=== PATIENT | female | born 1945 | race African-American/Black ===

== ENCOUNTER 2017-01-28 16:57 | Emergency (ER) | payer OTHER ==
[~2017-01-28] VITALS: Ht 157.5 cm; Wt 64.0 kg
[2017-01-28 17:08] VITALS: BP 175/55
[2017-01-28 18:11] LABS: Basophils # (auto) 0 uL; Basophils % (auto) 0.3 % (0.0-2.0); CONDITION Y; Eosinophils # (auto) 0.1 uL; Eosinophils % (auto) 1.1 % (0.0-7.0); Hematocrit 29.2 % (36.0-46.0); Hemoglobin 9.5 g/dL (12.2-16.2); Lymphocytes # (auto) 1.6 uL; Lymphocytes % (auto) 31.1 % (10.0-50.0); Mean Corpuscular Hemoglobin 30.3 pg (28.0-32.0); Mean Corpuscular Hgb Conc. 32.4 g/dL (32.0-36.0); Mean Corpuscular Volume 93.4 fL (80.0-100.0); Mean Platelet Volume 7.6 fL (7.4-10.4); Monocytes # (auto) 0.5 uL; Monocytes % (auto) 9.8 % (0.0-12.0); Neutrophils % (auto) 57.7 % (37.0-80.0); Platelet Count (auto) 371 10^3/uL (140-450); Red Cell Distribution Width 14.2 % (11.6-16.0); White Blood Cell 5.2 10^3/uL (4.4-10.8)
[2017-01-28 18:14] LABS: BUN/Creatinine Ratio 14.2; Bilirubin, Total 0.3 mg/dL (0.2-1.0); Calcium 8.9 mg/dL (8.5-10.1); Potassium 5.1 mmol/L (3.5-5.1); Total Protein 8.1 g/dL (6.4-8.2)
[2017-01-28 18:22] LABS: Urine Bilirubin Negative (Negative); Urine Blood Negative /uL (Negative); Urine Color Yellow (Yellow); Urine Glucose Normal (Normal); Urine Ketone Negative (Negative); Urine Nitrite Negative (Negative); Urine RBC 1 /hpf (0 - 4); Urine Squamous Epithelial Cell FEW /hpf (<5); Urine Urobilinogen Normal (Negative); Urine pH 5.5 (5.0-8.0)
== END 2017-01-28 18:40 | disposition home or self-care (01) ==
LOC: ER 17:08
DX: E87.8 Other disorders of electrolyte and fluid balance, not elsewhere classified (principal); R51 Headache; E11.22 Type 2 diabetes mellitus with diabetic chronic kidney disease; I12.9 Hypertensive chronic kidney disease with stage 1 through stage 4 chronic kidney disease, or unspecified chronic kidney disease; N18.9 Chronic kidney disease, unspecified; E78.5 Hyperlipidemia, unspecified; Z90.49 Acquired absence of other specified parts of digestive tract; Z90.710 Acquired absence of both cervix and uterus
CPT/HCPCS: 36415; 80053; 81001; 85025; 93005

== ENCOUNTER 2022-05-21 22:20 | Emergency (ER) | payer MEDICARE, MEDICAID ==
[~2022-05-21] VITALS: Ht 157.5 cm; Wt 62.0 kg
[2022-05-22 07:59] LABS: Basophils # (auto) 0 10 ^3/uL (0-0.2); Eosinophils # (auto) 0 10 ^3/uL (0-0.8); Lymphocytes # (auto) 1.6 10 ^3/uL (0.4-5.4); Monocytes # (auto) 0.6 10 ^3/uL (0-1.3)
[2022-05-22 08:01] LABS: Basophils % (auto) 0.3 % (0.0-2.0); Eosinophils % (auto) 0.8 % (0.0-7.0); Hematocrit 35.5 % (36.0-46.0); Mean Corpuscular Hemoglobin 25.9 pg (28.0-32.0); Mean Corpuscular Hgb Conc. 30.8 g/dL (32.0-36.0); Mean Corpuscular Volume 83.9 fL (80.0-100.0); Neutrophils # (auto) 2.5 10 ^3/uL (1.6-8.6); Neutrophils % (auto) 52.9 % (37.0-80.0); Nucleated Red Blood Cells % 0.1 %; Red Blood Cells 4.23 10^6/uL (4.0-5.20); Red Cell Distribution Width 16.8 % (11.8-14.3); White Blood Cell 4.8 10^3/uL (4.4-10.8)
[2022-05-22 08:13] LABS: Urine Bacteria FEW /hpf (None Seen); Urine Blood Negative /uL (Negative); Urine Budding Yeast OCCASIONAL /hpf (None Seen); Urine Hyaline Cast FEW /lpf (0 - 2); Urine Specific Gravity 1.012 (1.001-1.035); Urine WBC 1 /hpf (0 - 5)
[2022-05-22 08:24] LABS: Albumin 3.7 g/dL (3.4-5.0); BUN/Creatinine Ratio 11.9; Bilirubin, Total 0.2 mg/dL (0.2-1.0); Calcium 9.2 mg/dL (8.5-10.1); Potassium 4.4 mmol/L (3.5-5.1); Total Protein 7.5 g/dL (6.4-8.2)
[2022-05-22 08:50] VITALS: BP 174/65
== END 2022-05-22 09:07 | disposition home or self-care (01) ==
LOC: ER 22:22
DX: R10.32 Left lower quadrant pain (principal); E11.22 Type 2 diabetes mellitus with diabetic chronic kidney disease; I13.0 Hypertensive heart and chronic kidney disease with heart failure and stage 1 through stage 4 chronic kidney disease, or unspecified chronic kidney disease; N18.9 Chronic kidney disease, unspecified; E78.5 Hyperlipidemia, unspecified; Z90.49 Acquired absence of other specified parts of digestive tract; Z88.6 Allergy status to analgesic agent
CPT/HCPCS: 36415; 74018; 80053; 81001; 84484; 85025

== ENCOUNTER 2022-12-13 18:46 | Inpatient (IN) | payer MEDICARE, MEDICAID ==
[~2022-12-13] VITALS: Ht 157.5 cm; Wt 63.2 kg
[2022-12-13 21:04] LABS: Albumin 3.5 g/dL (3.4-5.0); Potassium 4.9 mmol/L (3.5-5.1)
[2022-12-13 21:07] LABS: BUN/Creatinine Ratio 11.9 (10.0-20.0); Bilirubin, Total 0.2 mg/dL (0.2-1.0); Total Protein 7.9 g/dL (6.4-8.2)
[2022-12-13 21:27] LABS: Urine Bacteria NONE SEEN /hpf (None Seen); Urine Blood Negative /uL (Negative); Urine Mucus FEW (None Seen); Urine Specific Gravity 1.021 (1.001-1.035); Urine WBC <1 /hpf (0 - 5)
[2022-12-13 21:28] LABS: Basophils # (auto) 0 10 ^3/uL (0-0.2); Basophils % (auto) 0.2 % (0.0-2.0); Eosinophils # (auto) 0 10 ^3/uL (0-0.8); Hematocrit 38.3 % (36.0-46.0); Hemoglobin 12.3 g/dL (12.2-16.2); Lymphocytes # (auto) 1.3 10 ^3/uL (0.4-5.4); Lymphocytes % (auto) 16.6 % (10.0-50.0); Mean Corpuscular Hemoglobin 28.4 pg (28.0-32.0); Mean Corpuscular Hgb Conc. 32.2 g/dL (32.0-36.0); Mean Corpuscular Volume 88.4 fL (80.0-100.0); Monocytes # (auto) 0.5 10 ^3/uL (0-1.3); Monocytes % (auto) 6.7 % (0.0-12.0); Neutrophils # (auto) 5.8 10 ^3/uL (1.6-8.6); Neutrophils % (auto) 76.5 % (37.0-80.0); Nucleated Red Blood Cells % 0.1 %; Red Blood Cells 4.34 10^6/uL (4.0-5.20); Red Cell Distribution Width 15.4 % (11.8-14.3); White Blood Cell 7.6 10^3/uL (4.4-10.8)
[2022-12-14] MEDS ORDERED: DEXTROSE (50%) 50ML SYRG IV PRN (01:15)
[2022-12-14] MEDS ORDERED: DOCUSATE SOD 100 MG CAP PO PRN (01:15)
[2022-12-14] MEDS ORDERED: IOHEXOL 350 MG/ML 100ML IJ ONE (03:35)
[2022-12-14] MEDS ORDERED: MORPHINE SULFATE INJ 2 MG/ml SYRG IV PRN ×2 (06:00→07:15)
[2022-12-14] MEDS ORDERED: NITROGLYCERIN 0.4 MG SL TAB SL PRN (06:00)
[2022-12-14 06:45] LABS: Basophils # (auto) 0.1 10 ^3/uL (0-0.2); Basophils % (auto) 0.8 % (0.0-2.0); Eosinophils # (auto) 0 10 ^3/uL (0-0.8); Eosinophils % (auto) 0.2 % (0.0-7.0); Hemoglobin 12.4 g/dL (12.2-16.2); Lymphocytes # (auto) 1.3 10 ^3/uL (0.4-5.4); Mean Corpuscular Hemoglobin 27.9 pg (28.0-32.0); Mean Corpuscular Hgb Conc. 31.9 g/dL (32.0-36.0); Mean Corpuscular Volume 87.6 fL (80.0-100.0); Monocytes # (auto) 0.8 10 ^3/uL (0-1.3); Monocytes % (auto) 9.8 % (0.0-12.0); Neutrophils # (auto) 5.7 10 ^3/uL (1.6-8.6); Neutrophils % (auto) 72.2 % (37.0-80.0); Nucleated Red Blood Cells % 0.2 %; Red Blood Cells 4.46 10^6/uL (4.0-5.20); Red Cell Distribution Width 15.7 % (11.8-14.3); White Blood Cell 7.9 10^3/uL (4.4-10.8)
[2022-12-14 07:07] LABS: Albumin 3.5 g/dL (3.4-5.0); Potassium 4.6 mmol/L (3.5-5.1)
[2022-12-14 07:10] LABS: BUN/Creatinine Ratio 13.1 (10.0-20.0); Bilirubin, Total 0.2 mg/dL (0.2-1.0); Total Protein 7.7 g/dL (6.4-8.2)
[2022-12-14] MEDS ORDERED: hydrALAZINE HCL 20 MG/ML VL IV PRN (07:15)
[2022-12-14] MEDS: ACCU-CHEK COMFORT CURVE STRIP VI SCH ×4 (07:19→22:00)
[2022-12-14] MEDS: InsuLIN REG 1unit/0.01ml Soln (100units/ml) SC SCH ×3 (07:26→17:50)
[2022-12-14] MEDS ORDERED: amLODIPine BESYLATE 5 MG TAB PO SCH (10:00)
[2022-12-14] MEDS: TACROLIMUS 1 MG CAP PO SCH ×2 (10:00→22:00)
[2022-12-14] MEDS: SODIUM CHLORIDE 0.9% 1,000 ML IV SCH ×2 (10:11→17:55)
[2022-12-14] MEDS: FAMOTIDINE (10MG/ML) 2ML VL IV SCH ×2 (11:00→23:53)
[2022-12-14] MEDS: ACETAMINOPHEN 325 MG TAB PO PRN (12:13)
[2022-12-14] MEDS ORDERED: metroNIDAZOLE 500MG/100ML 100 ML IV SCH (14:00)
[2022-12-14 22:00] VITALS: BP_SYST 153; BP_SYST 171; BP_DIAS 54; BP_DIAS 62
[2022-12-14] MEDS ORDERED: hydrALAZINE HCL 20 MG/ML VL IV ONE (22:45)
[2022-12-15] VITALS (9 sets, daily range): BP systolic 98–168; BP diastolic 54–71
[2022-12-15] MEDS: InsuLIN REG 1unit/0.01ml Soln (100units/ml) SC SCH ×5 (00:01→21:29)
[2022-12-15] MEDS: ONDANSETRON HCL 4 MG/2 ML VIAL IV PRN ×2 (00:39→17:39)
[2022-12-15] MEDS ORDERED: PANT40TA2 PO (02:18)
[2022-12-15] MEDS ORDERED: MYCO180T PO (02:18)
[2022-12-15] MEDS ORDERED: METO-158 PO (02:18)
[2022-12-15] MEDS ORDERED: ACYC200C22 PO (02:18)
[2022-12-15] MEDS ORDERED: TACR1CAP4 PO (02:18)
[2022-12-15] MEDS ORDERED: NIFE1TAB30 PO (02:18)
[2022-12-15] MEDS ORDERED: PRED1PAK7 PO (02:18)
[2022-12-15] MEDS ORDERED: DOCU-94 PO (02:26)
[2022-12-15] MEDS ORDERED: LORA10CA12 PO (02:26)
[2022-12-15] MEDS: metroNIDAZOLE 500MG/100ML 100 ML IV SCH ×3 (02:44→17:41)
[2022-12-15] MEDS: ACETAMINOPHEN 325 MG TAB PO PRN ×2 (04:14→22:55)
[2022-12-15] MEDS: ACCU-CHEK COMFORT CURVE STRIP VI SCH ×4 (05:50→21:27)
[2022-12-15 06:33] LABS: Basophils # (auto) 0 10 ^3/uL (0-0.2); Basophils % (auto) 0.4 % (0.0-2.0); Eosinophils # (auto) 0 10 ^3/uL (0-0.8); Eosinophils % (auto) 0.1 % (0.0-7.0); Hematocrit 34.3 % (36.0-46.0); Lymphocytes # (auto) 0.9 10 ^3/uL (0.4-5.4); Lymphocytes % (auto) 10.3 % (10.0-50.0); Mean Corpuscular Hemoglobin 27.7 pg (28.0-32.0); Mean Corpuscular Volume 86.7 fL (80.0-100.0); Monocytes # (auto) 0.7 10 ^3/uL (0-1.3); Monocytes % (auto) 8.7 % (0.0-12.0); Neutrophils # (auto) 6.6 10 ^3/uL (1.6-8.6); Neutrophils % (auto) 80.5 % (37.0-80.0); Red Blood Cells 3.96 10^6/uL (4.0-5.20); Red Cell Distribution Width 15.7 % (11.8-14.3); White Blood Cell 8.3 10^3/uL (4.4-10.8)
[2022-12-15 06:45] LABS: Albumin 2.9 g/dL (3.4-5.0); Calcium 8.4 mg/dL (8.5-10.1); Potassium 4.6 mmol/L (3.5-5.1)
[2022-12-15 06:51] LABS: Bilirubin, Total 0.4 mg/dL (0.2-1.0); Total Protein 6.2 g/dL (6.4-8.2)
[2022-12-15] MEDS: METOPROLOL TARTRATE 50 MG TAB PO SCH ×2 (09:53→21:22)
[2022-12-15] MEDS: NIFEdipine ER 30 MG TAB PO SCH ×2 (09:53→21:21)
[2022-12-15] MEDS: HYDROcodone-ACET 5/325MG TAB PO PRN ×2 (09:54→17:40)
[2022-12-15] MEDS: FAMOTIDINE (10MG/ML) 2ML VL IV SCH ×2 (09:54→21:22)
[2022-12-15] MEDS: SODIUM CHLORIDE 0.9% 1,000 ML IV SCH (09:57)
[2022-12-15] MEDS: predniSONE 5 MG TAB PO SCH (10:00)
[2022-12-15] MEDS: TACROLIMUS 1 MG CAP PO SCH (10:15)
[2022-12-15] MEDS: MYCOPHENOLATE 250 MG CAP PO SCH (22:00)
[2022-12-16] MEDS: metroNIDAZOLE 500MG/100ML 100 ML IV SCH ×3 (03:13→18:47)
[2022-12-16 05:00] VITALS: BP 119/71
[2022-12-16] MEDS: ACCU-CHEK COMFORT CURVE STRIP VI SCH ×4 (06:41→21:09)
[2022-12-16] MEDS: InsuLIN REG 1unit/0.01ml Soln (100units/ml) SC SCH ×5 (06:49→21:15)
[2022-12-16 08:00] VITALS: BP 148/68
[2022-12-16 08:00] LABS: Calcium 8.8 mg/dL (8.5-10.1); Potassium 4.3 mmol/L (3.5-5.1)
[2022-12-16 08:04] LABS: Basophils # (auto) 0 10 ^3/uL (0-0.2); Basophils % (auto) 0.2 % (0.0-2.0); Eosinophils # (auto) 0 10 ^3/uL (0-0.8); Eosinophils % (auto) 0.4 % (0.0-7.0); Hemoglobin 11.1 g/dL (12.2-16.2); Lymphocytes # (auto) 0.7 10 ^3/uL (0.4-5.4); Lymphocytes % (auto) 13.7 % (10.0-50.0); Mean Corpuscular Hemoglobin 28.1 pg (28.0-32.0); Mean Corpuscular Hgb Conc. 31.8 g/dL (32.0-36.0); Mean Corpuscular Volume 88.2 fL (80.0-100.0); Monocytes # (auto) 0.6 10 ^3/uL (0-1.3); Monocytes % (auto) 11.5 % (0.0-12.0); Neutrophils # (auto) 4.1 10 ^3/uL (1.6-8.6); Neutrophils % (auto) 74.2 % (37.0-80.0); Nucleated Red Blood Cells % 0.2 %; Red Blood Cells 3.97 10^6/uL (4.0-5.20); Red Cell Distribution Width 15.9 % (11.8-14.3); White Blood Cell 5.5 10^3/uL (4.4-10.8)
[2022-12-16 08:08] LABS: BUN/Creatinine Ratio 9.5 (10.0-20.0); Bilirubin, Total 0.4 mg/dL (0.2-1.0); Total Protein 6.5 g/dL (6.4-8.2)
[2022-12-16 09:00] VITALS: BP 152/53
[2022-12-16] MEDS ORDERED: APIX2.5T PO (09:29)
[2022-12-16] MEDS ORDERED: APIXABAN 2.5 MG TAB PO SCH (10:00)
[2022-12-16] MEDS: MYCOPHENOLATE 250 MG CAP PO SCH (10:00)
[2022-12-16] MEDS: NIFEdipine ER 30 MG TAB PO SCH ×2 (10:28→21:08)
[2022-12-16] MEDS: predniSONE 5 MG TAB PO SCH (10:28)
[2022-12-16] MEDS: METOPROLOL TARTRATE 50 MG TAB PO SCH ×2 (10:29→21:08)
[2022-12-16] MEDS: APIXABAN 2.5 MG TAB PO SCH ×2 (10:29→21:09)
[2022-12-16] MEDS: TACROLIMUS 1 MG CAP PO SCH (10:29)
[2022-12-16] MEDS: FAMOTIDINE (10MG/ML) 2ML VL IV SCH ×2 (11:55→21:09)
[2022-12-16 12:26] VITALS: BP 137/76
[2022-12-16] MEDS: HYDROcodone-ACET 5/325MG TAB PO PRN (13:51)
[2022-12-16] MEDS ORDERED: ALBUTEROL SULF 2.5 MG/0.5ML(0.5%) NEB SOLN NEB ONE (16:15)
[2022-12-16] MEDS ORDERED: ALBUTEROL SULF 2.5 MG/0.5ML(0.5%) NEB SOLN NEB PRN (16:30)
[2022-12-16 17:18] VITALS: BP 146/56
[2022-12-16 22:00] VITALS: BP 160/68
[2022-12-17] MEDS: metroNIDAZOLE 500MG/100ML 100 ML IV SCH ×3 (02:05→19:00)
[2022-12-17 02:44] VITALS: BP 160/68
[2022-12-17 05:00] VITALS: BP_SYST 103; BP_SYST 137; BP_DIAS 43; BP_DIAS 60
[2022-12-17] MEDS: ACCU-CHEK COMFORT CURVE STRIP VI SCH ×4 (06:06→21:36)
[2022-12-17] MEDS: InsuLIN REG 1unit/0.01ml Soln (100units/ml) SC SCH ×4 (06:06→21:36)
[2022-12-17 06:13] LABS: Basophils # (auto) 0 10 ^3/uL (0-0.2); Basophils % (auto) 0.1 % (0.0-2.0); Eosinophils # (auto) 0 10 ^3/uL (0-0.8); Eosinophils % (auto) 0.8 % (0.0-7.0); Hematocrit 34.5 % (36.0-46.0); Hemoglobin 10.9 g/dL (12.2-16.2); Lymphocytes # (auto) 0.9 10 ^3/uL (0.4-5.4); Lymphocytes % (auto) 18.5 % (10.0-50.0); Mean Corpuscular Hemoglobin 27.8 pg (28.0-32.0); Mean Corpuscular Hgb Conc. 31.7 g/dL (32.0-36.0); Mean Corpuscular Volume 87.6 fL (80.0-100.0); Monocytes # (auto) 0.6 10 ^3/uL (0-1.3); Monocytes % (auto) 12.6 % (0.0-12.0); Neutrophils # (auto) 3.4 10 ^3/uL (1.6-8.6); Nucleated Red Blood Cells % 0.2 %; Red Blood Cells 3.94 10^6/uL (4.0-5.20); Red Cell Distribution Width 15.5 % (11.8-14.3)
[2022-12-17 06:24] LABS: Potassium 4.5 mmol/L (3.5-5.1)
[2022-12-17 06:30] LABS: Albumin 3.1 g/dL (3.4-5.0); BUN/Creatinine Ratio 8.5 (10.0-20.0); Bilirubin, Total 0.3 mg/dL (0.2-1.0); Calcium 8.8 mg/dL (8.5-10.1); Total Protein 6.5 g/dL (6.4-8.2)
[2022-12-17 08:00] VITALS: BP 151/60
[2022-12-17] MEDS: APIXABAN 2.5 MG TAB PO SCH ×2 (08:27→21:36)
[2022-12-17] MEDS: FAMOTIDINE (10MG/ML) 2ML VL IV SCH (08:27)
[2022-12-17] MEDS: METOPROLOL TARTRATE 50 MG TAB PO SCH ×2 (08:28→21:36)
[2022-12-17] MEDS: predniSONE 5 MG TAB PO SCH (08:28)
[2022-12-17] MEDS: TACROLIMUS 1 MG CAP PO SCH (08:28)
[2022-12-17] MEDS: NIFEdipine ER 30 MG TAB PO SCH ×2 (08:28→21:35)
[2022-12-17] MEDS ORDERED: DEXTROSE (50%) 50ML SYRG IV PRN (11:30)
[2022-12-17 12:00] VITALS: BP 111/63
[2022-12-17 16:00] VITALS: BP 139/65
[2022-12-17] MEDS ORDERED: cefTRIAXone 1GM/50ML D5W 50 ML IV ONE (20:00)
[2022-12-17] MEDS: HYDROcodone-ACET 5/325MG TAB PO PRN (20:23)
[2022-12-17] MEDS ORDERED: diphenhdrAMINE HCL 25 MG CAP PO ONE (21:00)
[2022-12-17 22:00] VITALS: BP 152/74
[2022-12-18] MEDS: metroNIDAZOLE 500MG/100ML 100 ML IV SCH (03:54)
[2022-12-18 05:00] VITALS: BP 155/55
[2022-12-18] MEDS: InsuLIN REG 1unit/0.01ml Soln (100units/ml) SC SCH ×4 (06:22→22:29)
[2022-12-18] MEDS: ACCU-CHEK COMFORT CURVE STRIP VI SCH ×4 (06:22→22:28)
[2022-12-18 08:00] VITALS: BP 142/82
[2022-12-18] MEDS: predniSONE 5 MG TAB PO SCH (10:15)
[2022-12-18] MEDS: APIXABAN 2.5 MG TAB PO SCH ×2 (10:15→22:27)
[2022-12-18] MEDS: NIFEdipine ER 30 MG TAB PO SCH ×2 (10:15→22:27)
[2022-12-18] MEDS: TACROLIMUS 1 MG CAP PO SCH (10:16)
[2022-12-18] MEDS: METOPROLOL TARTRATE 50 MG TAB PO SCH ×2 (10:16→22:27)
[2022-12-18] MEDS: cefTRIAXone 1GM/50ML D5W 50 ML IV SCH (11:28)
[2022-12-18 12:00] VITALS: BP 144/65
[2022-12-18] MEDS: metroNIDAZOLE 500 MG TAB PO SCH ×2 (14:13→22:28)
[2022-12-18 16:00] VITALS: BP 144/70
[2022-12-18 22:00] VITALS: BP 138/67
[2022-12-18] MEDS ORDERED: INSULIN LANTUS (GLARGINE) 1 /0.01ml (100units/ml) SC SCH (22:00)
[2022-12-19 05:00] VITALS: BP 142/69
[2022-12-19] MEDS: metroNIDAZOLE 500 MG TAB PO SCH ×2 (06:05→14:23)
[2022-12-19] MEDS: InsuLIN REG 1unit/0.01ml Soln (100units/ml) SC SCH ×2 (06:07→12:00)
[2022-12-19] MEDS: ACCU-CHEK COMFORT CURVE STRIP VI SCH ×2 (06:07→11:59)
[2022-12-19 07:16] LABS: Basophils # (auto) 0 10 ^3/uL (0-0.2); Basophils % (auto) 0.5 % (0.0-2.0); Eosinophils # (auto) 0 10 ^3/uL (0-0.8); Eosinophils % (auto) 1.1 % (0.0-7.0); Lymphocytes % (auto) 23.3 % (10.0-50.0); Mean Corpuscular Hemoglobin 28.1 pg (28.0-32.0); Mean Corpuscular Hgb Conc. 32.4 g/dL (32.0-36.0); Mean Corpuscular Volume 86.7 fL (80.0-100.0); Monocytes # (auto) 0.7 10 ^3/uL (0-1.3); Monocytes % (auto) 14.9 % (0.0-12.0); Neutrophils # (auto) 2.7 10 ^3/uL (1.6-8.6); Neutrophils % (auto) 60.2 % (37.0-80.0); Red Blood Cells 3.93 10^6/uL (4.0-5.20); Red Cell Distribution Width 15.7 % (11.8-14.3); White Blood Cell 4.4 10^3/uL (4.4-10.8)
[2022-12-19 07:22] LABS: BUN/Creatinine Ratio 10.9 (10.0-20.0); Calcium 8.7 mg/dL (8.5-10.1)
[2022-12-19 07:55] VITALS: BP 131/64
[2022-12-19] MEDS: cefTRIAXone 1GM/50ML D5W 50 ML IV SCH (09:16)
[2022-12-19 09:23] VITALS: BP 131/64
[2022-12-19] MEDS: NIFEdipine ER 30 MG TAB PO SCH (09:50)
[2022-12-19] MEDS: METOPROLOL TARTRATE 50 MG TAB PO SCH (09:51)
[2022-12-19] MEDS: APIXABAN 2.5 MG TAB PO SCH (09:51)
[2022-12-19] MEDS: predniSONE 5 MG TAB PO SCH (09:51)
[2022-12-19] MEDS: TACROLIMUS 1 MG CAP PO SCH (09:52)
[2022-12-19] MEDS ORDERED: METR375C PO (09:53)
[2022-12-19] MEDS ORDERED: CIP500T PO (09:53)
[2022-12-19 12:59] VITALS: BP 159/65
[2022-12-19 13:12] VITALS: BP 159/65
== END 2022-12-19 14:23 | disposition home or self-care (01) | DRG 377 ==
LOC: ER 18:50 → OVERFLOW 12-14 05:51 → CENTRAL 12-14 21:18
PROVIDERS: ADMIT Nurse Practitioner Family; ATTEND Internal Medicine
DX: K57.33 Diverticulitis of large intestine without perforation or abscess with bleeding (principal); N17.0 Acute kidney failure with tubular necrosis; I82.402 Acute embolism and thrombosis of unspecified deep veins of left lower extremity; E11.22 Type 2 diabetes mellitus with diabetic chronic kidney disease; K52.9 Noninfective gastroenteritis and colitis, unspecified; E78.5 Hyperlipidemia, unspecified; N18.31 Chronic kidney disease, stage 3a; I12.9 Hypertensive chronic kidney disease with stage 1 through stage 4 chronic kidney disease, or unspecified chronic kidney disease; I16.0 Hypertensive urgency; Z79.01 Long term (current) use of anticoagulants; Z88.6 Allergy status to analgesic agent; Z90.710 Acquired absence of both cervix and uterus; Z86.718 Personal history of other venous thrombosis and embolism
CPT/HCPCS: 36415; 71045; 74177; 80048; 80053; 80197; 81001; 82962; 83690; 85025; 93975; 94640; 96361; 96365; 96375; G0378; J0696; J1815; J2405; J3490; J7507; J7517

== ENCOUNTER 2023-01-30 14:22 | Emergency (ER) | payer MEDICARE, MEDICAID ==
[~2023-01-30] VITALS: Ht 157.5 cm; Wt 58.6 kg
[~2023-01-30 14:22] MED LIST: ACYC200C22 PO; APIX2.5T PO; CIP500T PO; DOCU-94 PO; LORA10CA12 PO; METO-158 PO; METR375C PO; MYCO180T PO; NIFE1TAB30 PO; PANT40TA2 PO; PRED1PAK7 PO; TACR1CAP4 PO
[2023-01-30 15:23] LABS: Urine Bacteria MOD /hpf (None Seen); Urine Blood Negative /uL (Negative); Urine Hyaline Cast FEW /lpf (0 - 2); Urine Mucus FEW (None Seen); Urine Specific Gravity 1.031 (1.001-1.035); Urine WBC 2 /hpf (0 - 5)
[2023-01-30 15:37] LABS: Basophils # (auto) 0 10 ^3/uL (0-0.2); Basophils % (auto) 0.3 % (0.0-2.0); Eosinophils # (auto) 0 10 ^3/uL (0-0.8); Eosinophils % (auto) 0.3 % (0.0-7.0); Hematocrit 39.1 % (36.0-46.0); Hemoglobin 12.3 g/dL (12.2-16.2); Lymphocytes # (auto) 1.1 10 ^3/uL (0.4-5.4); Lymphocytes % (auto) 21.6 % (10.0-50.0); Mean Corpuscular Hemoglobin 27.5 pg (28.0-32.0); Mean Corpuscular Hgb Conc. 31.5 g/dL (32.0-36.0); Mean Corpuscular Volume 87.1 fL (80.0-100.0); Monocytes # (auto) 0.4 10 ^3/uL (0-1.3); Monocytes % (auto) 6.9 % (0.0-12.0); Neutrophils # (auto) 3.8 10 ^3/uL (1.6-8.6); Neutrophils % (auto) 70.9 % (37.0-80.0); Nucleated Red Blood Cells % 0.1 %; Red Blood Cells 4.49 10^6/uL (4.0-5.20); Red Cell Distribution Width 17.1 % (11.8-14.3); White Blood Cell 5.3 10^3/uL (4.4-10.8)
[2023-01-30 15:58] LABS: Albumin 3.6 g/dL (3.4-5.0); Calcium 9.4 mg/dL (8.5-10.1); Potassium 4.6 mmol/L (3.5-5.1)
[2023-01-30 16:02] LABS: BUN/Creatinine Ratio 10.5 (10.0-20.0); Bilirubin, Total 0.4 mg/dL (0.2-1.0); Total Protein 7.6 g/dL (6.4-8.2)
[2023-01-30 19:20] VITALS: BP 128/59; PULSE 95; RESP 18; TEMP 98.1; O2SAT 95
== END 2023-01-30 19:56 | disposition home or self-care (01) ==
LOC: ER 14:22
DX: R13.10 Dysphagia, unspecified (principal); R53.1 Weakness; I12.9 Hypertensive chronic kidney disease with stage 1 through stage 4 chronic kidney disease, or unspecified chronic kidney disease; E11.22 Type 2 diabetes mellitus with diabetic chronic kidney disease; N18.9 Chronic kidney disease, unspecified; E78.5 Hyperlipidemia, unspecified; Z90.49 Acquired absence of other specified parts of digestive tract; Z90.710 Acquired absence of both cervix and uterus; Z98.890 Other specified postprocedural states
CPT/HCPCS: 36415; 70450; 70551; 80053; 81001; 85025

== ENCOUNTER 2023-05-29 19:31 | Emergency (ER) | payer MEDICARE, MEDICAID ==
[~2023-05-29] VITALS: Ht 157.5 cm; Wt 57.3 kg
[2023-05-29 21:09] LABS: Basophils # (auto) 0 10 ^3/uL (0-0.2); Basophils % (auto) 0.2 % (0.0-2.0); Eosinophils # (auto) 0 10 ^3/uL (0-0.8); Eosinophils % (auto) 0.2 % (0.0-7.0); Hematocrit 36.7 % (36.0-46.0); Hemoglobin 11.8 g/dL (12.2-16.2); Lymphocytes # (auto) 1.2 10 ^3/uL (0.4-5.4); Lymphocytes % (auto) 23.1 % (10.0-50.0); Mean Corpuscular Hemoglobin 28.9 pg (28.0-32.0); Mean Corpuscular Volume 90.2 fL (80.0-100.0); Monocytes # (auto) 0.5 10 ^3/uL (0-1.3); Monocytes % (auto) 9.8 % (0.0-12.0); Neutrophils # (auto) 3.4 10 ^3/uL (1.6-8.6); Neutrophils % (auto) 66.7 % (37.0-80.0); Nucleated Red Blood Cells % 0.1 %; Red Blood Cells 4.07 10^6/uL (4.0-5.20); Red Cell Distribution Width 15.7 % (11.8-14.3)
[2023-05-29 21:15] LABS: Urine Bacteria MANY /hpf (None Seen); Urine Blood Negative /uL (Negative); Urine Clarity HAZY (Clear); Urine Color Yellow (Yellow); Urine Hyaline Cast MOD /lpf (0 - 2); Urine Mucus FEW (None Seen); Urine Protein, UAD TRACE (Negative); Urine Specific Gravity 1.027 (1.001-1.035); Urine Urobilinogen Normal (Negative); Urine WBC 2 /hpf (0 - 5)
[2023-05-29 21:27] LABS: Albumin 4.7 g/dL (3.2-4.8); Alkaline Phosphatase 91 U/L (46-116); Anion Gap 6 (5-15); Aspartate Aminotransferase 14 U/L (13-40); BUN/Creatinine Ratio 12.8 (10.0-20.0); Blood Urea Nitrogen 24 mg/dL (9-23); Calcium 10.2 mg/dL (8.5-10.1); Carbon Dioxide 27 mmol/L (20-30); Chloride 102 mmol/L (98-107); Glucose 128 mg/dL (74-106); Potassium 5.4 mmol/L (3.5-5.1); Sodium 135 mmol/L (136-145)
[2023-05-29 21:28] LABS: Bilirubin, Total 0.4 mg/dL (0.2-1.0)
[2023-05-29 21:29] LABS: Total Protein 7.2 g/dL (5.7-8.2)
[2023-05-29 22:12] LABS: Alanine Aminotransferase < 9 U/L (7-40)
[2023-05-30] MEDS ORDERED: ALBUTEROL SULF 2.5 MG/0.5ML(0.5%) NEB SOLN NEB ONE (00:45)
[2023-05-30] MEDS ORDERED: cefTRIAXone SOD 1,000 MG VL IM ONE (00:45)
[2023-05-30 01:53] LABS: Alkaline Phosphatase 88 U/L (46-116); Anion Gap 7 (5-15); Aspartate Aminotransferase 14 U/L (13-40); BUN/Creatinine Ratio 8.7 (10.0-20.0); Blood Urea Nitrogen 17 mg/dL (9-23); Calcium 9.6 mg/dL (8.7-10.4); Carbon Dioxide 24 mmol/L (20-30); Chloride 102 mmol/L (98-107); Glucose 116 mg/dL (74-106); Potassium 5.1 mmol/L (3.5-5.1); Sodium 133 mmol/L (136-145)
[2023-05-30 01:54] LABS: Albumin 4.7 g/dL (3.2-4.8); Bilirubin, Total 0.4 mg/dL (0.2-1.0); Total Protein 7.5 g/dL (5.7-8.2)
[2023-05-30 02:15] LABS: Alanine Aminotransferase < 9 U/L (7-40)
[2023-05-30] MEDS ORDERED: NITR-87 PO (03:08)
[2023-05-30] MEDS ORDERED: SODIUM CHLORIDE 0.9% 500 ML IV ONE (03:15)
[2023-05-30 04:18] VITALS: BP 129/60; PULSE 106; RESP 20; TEMP 98.2; O2SAT 98
== END 2023-05-30 04:38 | disposition home or self-care (01) ==
LOC: ER 19:31
DX: E87.8 Other disorders of electrolyte and fluid balance, not elsewhere classified (principal); N17.9 Acute kidney failure, unspecified; N39.0 Urinary tract infection, site not specified; I12.9 Hypertensive chronic kidney disease with stage 1 through stage 4 chronic kidney disease, or unspecified chronic kidney disease; E11.22 Type 2 diabetes mellitus with diabetic chronic kidney disease; N18.9 Chronic kidney disease, unspecified; E78.5 Hyperlipidemia, unspecified; Z90.49 Acquired absence of other specified parts of digestive tract; Z90.710 Acquired absence of both cervix and uterus; Z79.2 Long term (current) use of antibiotics; Z79.899 Other long term (current) drug therapy; Z88.6 Allergy status to analgesic agent
CPT/HCPCS: 36415; 80053; 81001; 84484; 85025; 94640; 96372; 99283; J0696

== ENCOUNTER 2024-03-21 12:25 | Inpatient (IN) | payer MEDICARE, OTHER ==
[~2024-03-21] VITALS: Ht 157.5 cm; Wt 65.6 kg
[~2024-03-21 12:25] MED LIST changes: +NITR-87 PO
[2024-03-21 13:18] LABS: Basophils # (auto) 0 10 ^3/uL (0-0.2); Basophils % (auto) 0.2 % (0.0-2.0); Eosinophils # (auto) 0 10 ^3/uL (0-0.8); Eosinophils % (auto) 0.1 % (0.0-7.0); Hematocrit 26.4 % (36.0-46.0); Hemoglobin 7.7 g/dL (12.2-16.2); Lymphocytes # (auto) 1.4 10 ^3/uL (0.4-5.4); Mean Corpuscular Hemoglobin 23.5 pg (28.0-32.0); Mean Corpuscular Hgb Conc. 29.1 g/dL (32.0-36.0); Mean Corpuscular Volume 80.8 fL (80.0-100.0); Monocytes # (auto) 0.5 10 ^3/uL (0-1.3); Monocytes % (auto) 9.1 % (0.0-12.0); Neutrophils # (auto) 3.4 10 ^3/uL (1.6-8.6); Neutrophils % (auto) 64.6 % (37.0-80.0); Nucleated Red Blood Cells % 0.2 %; Platelet Count (auto) 328 10^3/uL (140-450); Red Blood Cells 3.27 10^6/uL (4.0-5.20); Red Cell Distribution Width 17.6 % (11.8-14.3); White Blood Cell 5.2 10^3/uL (4.4-10.8)
[2024-03-21 13:32] LABS: Albumin 4.1 g/dL (3.2-4.8); Alkaline Phosphatase 105 U/L (46-116); Anion Gap 7 (5-15); Aspartate Aminotransferase 17 U/L (13-40); BUN/Creatinine Ratio 10.9 (10.0-20.0); Blood Urea Nitrogen 25 mg/dL (9-23); Calcium 8.8 mg/dL (8.7-10.4); Carbon Dioxide 19 mmol/L (20-30); Chloride 106 mmol/L (98-107); Glucose 179 mg/dL (74-106); Lipase 48 U/L (12-53); Potassium 5.4 mmol/L (3.5-5.1); Sodium 132 mmol/L (136-145)
[2024-03-21 13:33] LABS: Bilirubin, Total 0.3 mg/dL (0.2-1.0); Total Protein 6.5 g/dL (5.7-8.2)
[2024-03-21 13:36] LABS: Alanine Aminotransferase < 9 U/L (7-40)
[2024-03-21] MEDS: SODIUM CHLORIDE 0.9% 1,000 ML IV ONE (13:38)
[2024-03-21] MEDS: ALBUTEROL SULF 2.5 MG/0.5ML(0.5%) NEB SOLN NEB ONE (14:13)
[2024-03-21] MEDS ORDERED: NITROGLYCERIN 0.4 MG SL TAB SL PRN (17:15)
[2024-03-21] MEDS ORDERED: DEXTROSE (50%) 50ML SYRG IV PRN (17:15)
[2024-03-21] MEDS ORDERED: DOCUSATE SOD 100 MG CAP PO PRN (17:15)
[2024-03-21 18:05] LABS: Magnesium 2.6 mg/dL (1.6-2.6)
[2024-03-21 18:35] LABS: Urine Bacteria FEW /hpf (None Seen); Urine Blood 2+ /uL (Negative); Urine Clarity Turbid (Clear); Urine Color Yellow (Yellow); Urine Hyaline Cast MOD /lpf (0 - 2); Urine Mucus FEW (None Seen); Urine Protein, UAD 1+ (Negative); Urine Specific Gravity 1.026 (1.001-1.035); Urine Urobilinogen Normal (Negative); Urine WBC <1 /hpf (0 - 5); Urine pH 5.5 (5.0-9.0)
[2024-03-21] MEDS: MORPHINE SULFATE INJ 2 MG/ml SYRG IV PRN (20:13)
[2024-03-21] MEDS: ONDANSETRON HCL 4 MG/2 ML VIAL IV PRN (20:13)
[2024-03-21] MEDS: PANTOPRAZOLE 40 MG/10 ML VIAL INJ IV ONE (22:34)
[2024-03-21] MEDS: PIPERACILLIN-TAZOB 3.375GM 100 ML IV ONE (22:37)
[2024-03-21] MEDS: PANTOPRAZOLE 40 MG/10 ML VIAL INJ IV SCH (22:56)
[2024-03-21] MEDS: CALCIUM GLUC 1,000mg/50ml-NS 50 ML IV ONE (22:59)
[2024-03-21] MEDS: FUROSEMIDE 20 MG/2 ML VIAL IV ONE (22:59)
[2024-03-21] MEDS: PIPERACILLIN-TAZOB 3.375GM 100 ML IV SCH (23:03)
[2024-03-21 23:10] VITALS: PULSE 96; RESP 28; O2SAT 96
[2024-03-21 23:27] LABS: Hematocrit 23.1 % (36.0-46.0)
[2024-03-21] MEDS: ACCU-CHEK COMFORT CURVE STRIP VI SCH (23:36)
[2024-03-21] MEDS: InsuLIN REG 1unit/0.01ml Soln (100units/ml) SC SCH (23:42)
[2024-03-21] MEDS: MYCOPHENOLATE SODIUM 180 MG PO SCH (23:43)
[2024-03-21] MEDS: NIFEdipine ER 30 MG TAB PO SCH (23:46)
[2024-03-21 23:48] VITALS: BP 144/61; PULSE 97; RESP 28; TEMP 98
[2024-03-22] VITALS (16 sets, daily range): BP systolic 109–134; BP diastolic 34–61; PULSE 66–96; RESP 18–29; TEMP 97.7–99; O2SAT 84–99
[2024-03-22] MEDS ORDERED: PANT40T PO (01:26)
[2024-03-22] MEDS ORDERED: APIX5TAB PO (01:26)
[2024-03-22] MEDS ORDERED: MAGN241.6 PO (01:26)
[2024-03-22] MEDS ORDERED: TELM1TAB35 PO (01:26)
[2024-03-22] MEDS ORDERED: METO-289 PO (01:26)
[2024-03-22] MEDS ORDERED: TACR1TAB2 PO (01:26)
[2024-03-22] MEDS ORDERED: TACR200T PO (01:26)
[2024-03-22] MEDS ORDERED: CLON0.1T PO (01:26)
[2024-03-22] MEDS ORDERED: DOCU-265 PO (01:26)
[2024-03-22] MEDS ORDERED: DULA4.5I SC (01:26)
[2024-03-22] MEDS ORDERED: ATOR10TA52 PO (01:26)
[2024-03-22] MEDS ORDERED: FER325T PO (01:26)
[2024-03-22] MEDS ORDERED: CLOT10TR PO (01:52)
[2024-03-22] MEDS ORDERED: FLUC100T34 PO (01:52)
[2024-03-22] MEDS: SODIUM CHLORIDE 0.9% 1,000 ML IV SCH (05:43)
[2024-03-22 05:59] LABS: Basophils # (auto) 0 10 ^3/uL (0-0.2); Eosinophils # (auto) 0 10 ^3/uL (0-0.8); Mean Corpuscular Hemoglobin 24.7 pg (28.0-32.0)
[2024-03-22 06:01] LABS: Basophils % (auto) 0.3 % (0.0-2.0); Hematocrit 29.3 % (36.0-46.0); Hemoglobin 9.1 g/dL (12.2-16.2); Lymphocytes % (auto) 15.7 % (10.0-50.0); Mean Corpuscular Hgb Conc. 30.9 g/dL (32.0-36.0); Mean Corpuscular Volume 79.8 fL (80.0-100.0); Monocytes # (auto) 0.8 10 ^3/uL (0-1.3); Monocytes % (auto) 13.1 % (0.0-12.0); Neutrophils # (auto) 4.5 10 ^3/uL (1.6-8.6); Neutrophils % (auto) 70.9 % (37.0-80.0); Nucleated Red Blood Cells % 0.2 %; Platelet Count (auto) 302 10^3/uL (140-450); Red Blood Cells 3.67 10^6/uL (4.0-5.20); Red Cell Distribution Width 18.2 % (11.8-14.3); White Blood Cell 6.4 10^3/uL (4.4-10.8)
[2024-03-22 06:15] LABS: Alanine Aminotransferase < 9 U/L (7-40); Alkaline Phosphatase 115 U/L (46-116); Anion Gap 11 (5-15); Aspartate Aminotransferase 34 U/L (13-40); BUN/Creatinine Ratio 11.7 (10.0-20.0); Blood Urea Nitrogen 28 mg/dL (9-23); Calcium 9.3 mg/dL (8.7-10.4); Carbon Dioxide 17 mmol/L (20-30); Chloride 107 mmol/L (98-107); Glucose 88 mg/dL (74-106); Potassium 5.1 mmol/L (3.5-5.1); Sodium 135 mmol/L (136-145)
[2024-03-22 06:16] LABS: Bilirubin, Total 0.4 mg/dL (0.2-1.0); Total Protein 6.5 g/dL (5.7-8.2)
[2024-03-22] MEDS ORDERED: TACROLIMUS 1 MG CAP PO SCH (10:00)
[2024-03-22] MEDS: METOPROLOL TARTRATE 50 MG TAB PO SCH (10:00)
[2024-03-22] MEDS: DOXYCYCLINE 100 MG TAB/CAP PO ONE (12:26)
[2024-03-22 12:34] LABS: Hematocrit 28.7 % (36.0-46.0); Hemoglobin 8.7 g/dL (12.2-16.2)
[2024-03-22 12:55] LABS: % Iron Saturation 3.1 % (15-50)
[2024-03-22 13:14] LABS: Erythrocyte Sedimentation Rate 62 mm/hr (0-20)
[2024-03-22] MEDS: ACETAMINOPHEN 325 MG TAB PO PRN (17:48)
[2024-03-22] MEDS: IRON SUCROSE COMPLEX 100 ML IV SCH (17:49)
[2024-03-22] MEDS: TACROLIMUS 1 MG CAP PO SCH (17:49)
[2024-03-22] MEDS: FUROSEMIDE 20 MG/2 ML VIAL IV ONE (17:50)
[2024-03-22] MEDS: ALBUTEROL SULF 2.5 MG/0.5ML(0.5%) NEB SOLN NEB SCH (18:11)
[2024-03-22] MEDS: ACETYLCYSTEINE 20%(200MG/ML) SOL 4ML NEB SCH (18:11)
[2024-03-22] MEDS: IPRATROPIUM BROM 0.5 MG/2.5ML INH SOL NEB SCH (18:11)
[2024-03-22 18:43] LABS: Hematocrit 28.3 % (36.0-46.0); Hemoglobin 8.7 g/dL (12.2-16.2)
[2024-03-22] MEDS: DOXYCYCLINE 100 MG TAB/CAP PO SCH (21:46)
[2024-03-22] MEDS: MYCOPHENOLATE 500 MG TAB PO SCH (21:46)
[2024-03-23] VITALS (14 sets, daily range): BP systolic 109–164; BP diastolic 44–71; PULSE 82–125; RESP 16–22; TEMP 98.1–100.9; O2SAT 91–100
[2024-03-23] MEDS: ALBUTEROL SULF 2.5 MG/0.5ML(0.5%) NEB SOLN NEB PRN (03:40)
[2024-03-23 06:43] LABS: Chloride 107 mmol/L (98-107); Sodium 136 mmol/L (136-145)
[2024-03-23 06:44] LABS: Anion Gap 10 (5-15); Carbon Dioxide 19 mmol/L (20-30)
[2024-03-23 06:49] LABS: BUN/Creatinine Ratio 10.4 (10.0-20.0); Blood Urea Nitrogen 26 mg/dL (9-23); Glucose 114 mg/dL (74-106)
[2024-03-23 06:50] LABS: Magnesium 2.2 mg/dL (1.6-2.6)
[2024-03-23 06:55] LABS: Calcium 8.6 mg/dL (8.7-10.4)
[2024-03-23] MEDS: TACROLIMUS 1 MG CAP PO SCH (07:00)
[2024-03-23] MEDS: predniSONE 5 MG TAB PO SCH (09:52)
[2024-03-23] MEDS: cefTRIAXone 1GM/50ML D5W 50 ML IV SCH (10:02)
[2024-03-23] MEDS: SODIUM CHLORIDE 0.9% 1,000 ML IV SCH (15:24)
[2024-03-23] MEDS ORDERED: GLIP10TA9 PO (15:39)
[2024-03-23] MEDS ORDERED: FINE10TA PO (15:39)
[2024-03-23] MEDS: PIPERACILLIN-TAZOB 3.375GM 100 ML IV ONE (15:54)
[2024-03-23] MEDS: PIPERACILLIN-TAZOB 3.375GM 100 ML IV SCH (22:00)
[2024-03-24] VITALS (17 sets, daily range): BP systolic 111–129; BP diastolic 38–53; PULSE 80–112; RESP 16–24; TEMP 98.1–99.3; O2SAT 92–99
[2024-03-24 06:26] LABS: Basophils # (auto) 0 10 ^3/uL (0-0.2); Eosinophils # (auto) 0 10 ^3/uL (0-0.8); Lymphocytes # (auto) 0.9 10 ^3/uL (0.4-5.4)
[2024-03-24 06:29] LABS: Basophils % (auto) 0.1 % (0.0-2.0); Hematocrit 27.5 % (36.0-46.0); Hemoglobin 8.6 g/dL (12.2-16.2); Mean Corpuscular Hemoglobin 24.7 pg (28.0-32.0); Mean Corpuscular Hgb Conc. 31.4 g/dL (32.0-36.0); Mean Corpuscular Volume 78.8 fL (80.0-100.0); Monocytes # (auto) 0.6 10 ^3/uL (0-1.3); Monocytes % (auto) 8.1 % (0.0-12.0); Neutrophils # (auto) 6.2 10 ^3/uL (1.6-8.6); Neutrophils % (auto) 79.8 % (37.0-80.0); Nucleated Red Blood Cells % 0.1 %; Platelet Count (auto) 334 10^3/uL (140-450); Red Cell Distribution Width 18.3 % (11.8-14.3); White Blood Cell 7.8 10^3/uL (4.4-10.8)
[2024-03-24 06:44] LABS: Albumin 3.7 g/dL (3.2-4.8); Alkaline Phosphatase 136 U/L (46-116); Anion Gap 7 (5-15); Aspartate Aminotransferase 28 U/L (13-40); Blood Urea Nitrogen 27 mg/dL (9-23); Calcium 8.7 mg/dL (8.7-10.4); Carbon Dioxide 20 mmol/L (20-30); Chloride 106 mmol/L (98-107); Glucose 69 mg/dL (74-106); Potassium 5.3 mmol/L (3.5-5.1); Sodium 133 mmol/L (136-145)
[2024-03-24 06:45] LABS: Bilirubin, Total 0.2 mg/dL (0.2-1.0); Total Protein 6.2 g/dL (5.7-8.2)
[2024-03-24 06:52] LABS: Alanine Aminotransferase < 9 U/L (7-40)
[2024-03-24 08:06] LABS: Complement C3 134 mg/dL (82-167)
[2024-03-24] MEDS ORDERED: SODIUM CHLORIDE 0.9% 1,000 ML IV SCH (09:30)
[2024-03-24 10:05] LABS: INR 1.06 (0.9-1.15); Partial Thromboplastin Time 41.9 SEC (24.5-34.5); Prothrombin Time 11.2 sec (9.3-11.8)
[2024-03-24] MEDS: FUROSEMIDE 40 MG/4 ML VIAL IV ONE (10:24)
[2024-03-24] MEDS: LIDOCAINE VISCOUS 2% 15ML UD ONE (15:32)
[2024-03-24] MEDS: MIDAZOLAM HCL 5 MG/ML-1ML VIAL ONE (15:34)
[2024-03-24] MEDS: fentaNYL CITRATE 100 MCG/2 ML VL ONE (15:34)
[2024-03-24] MEDS: diphenhdrAMINE HCL 50 MG/1 ML VL ONE (15:34)
[2024-03-24] MEDS: predniSONE 5 MG TAB PO SCH (17:18)
[2024-03-25] VITALS (19 sets, daily range): BP systolic 105–130; BP diastolic 40–54; PULSE 87–103; RESP 18–20; TEMP 98–99.2; O2SAT 94–100
[2024-03-25 07:17] LABS: Chloride 105 mmol/L (98-107); Sodium 132 mmol/L (136-145)
[2024-03-25 07:18] LABS: Anion Gap 12 (5-15); Carbon Dioxide 15 mmol/L (20-30); Hematocrit 27.5 % (36.0-46.0); Hemoglobin 8.5 g/dL (12.2-16.2); Mean Corpuscular Hemoglobin 24.9 pg (28.0-32.0); Mean Corpuscular Hgb Conc. 31.1 g/dL (32.0-36.0); Mean Corpuscular Volume 80.3 fL (80.0-100.0); Platelet Count (auto) 383 10^3/uL (140-450); Red Blood Cells 3.42 10^6/uL (4.0-5.20); Red Cell Distribution Width 18.7 % (11.8-14.3); White Blood Cell 7.4 10^3/uL (4.4-10.8)
[2024-03-25 07:23] LABS: BUN/Creatinine Ratio 9.1 (10.0-20.0); Blood Urea Nitrogen 28 mg/dL (9-23); Glucose 158 mg/dL (74-106)
[2024-03-25 07:31] LABS: Potassium 6.2 mmol/L (3.5-5.1)
[2024-03-25 08:02] LABS: Band Neutrophils % (manual) 0; Basophils % (manual) 0 (0.0-2.0); Blast Cells 0; Eosinophils % (manual) 0 (0-7); Metamyelocytes % 0; Myelocytes % 0; Promyelocytes % 0; Reactive Lymphocytes 0
[2024-03-25] MEDS: ALBUTEROL SULF 2.5 MG/0.5ML(0.5%) NEB SOLN NEB ONE (08:18)
[2024-03-25] MEDS: CALCIUM GLUC 1,000mg/50ml-NS 50 ML IV ONE (08:59)
[2024-03-25] MEDS: FUROSEMIDE 40 MG/4 ML VIAL IV ONE (09:00)
[2024-03-25] MEDS: SODIUM ZIRCONIUM CYCL 10 GM PAK PO ONE (09:01)
[2024-03-25] MEDS: DEXTROSE (50%) 50ML SYRG IV ONE (09:03)
[2024-03-25] MEDS: SODIUM BICARB 8.4% 50Meq/50ml SYR INJ IV ONE (09:03)
[2024-03-25] MEDS: InsuLIN REG 1unit/0.01ml Soln (100units/ml) IV ONE (09:04)
[2024-03-25 10:29] LABS: Lymphocytes % (manual) 8 (10.0-50.0); Monocytes % (manual) 4 (0-12)
[2024-03-25 10:32] LABS: Platelet Estimate Adequate
[2024-03-25] MEDS: SODIUM BICARB 50mEq/50ml Vial 150 ML in D5W 5% 1,000 ML IV SCH (10:32)
[2024-03-25] MEDS ORDERED: SODIUM ZIRCONIUM CYCL 10 GM PAK PO SCH (14:00)
[2024-03-26] VITALS (12 sets, daily range): BP systolic 101–120; BP diastolic 42–54; PULSE 95–118; RESP 14–22; TEMP 98.2–99.2; O2SAT 94–100
[2024-03-26] MEDS: PANTOPRAZOLE 40 MG TAB PO SCH (05:25)
[2024-03-26 06:33] LABS: Basophils # (auto) 0 10 ^3/uL (0-0.2); Basophils % (auto) 0.1 % (0.0-2.0); Eosinophils # (auto) 0 10 ^3/uL (0-0.8)
[2024-03-26 06:36] LABS: Chloride 98 mmol/L (98-107); Potassium 4.8 mmol/L (3.5-5.1); Sodium 132 mmol/L (136-145)
[2024-03-26 06:37] LABS: Anion Gap 9 (5-15); Carbon Dioxide 25 mmol/L (20-30); Hematocrit 25.7 % (36.0-46.0); Hemoglobin 8.4 g/dL (12.2-16.2); Lymphocytes # (auto) 0.3 10 ^3/uL (0.4-5.4); Lymphocytes % (auto) 4.2 % (10.0-50.0); Mean Corpuscular Hemoglobin 25.5 pg (28.0-32.0); Mean Corpuscular Hgb Conc. 32.8 g/dL (32.0-36.0); Mean Corpuscular Volume 77.7 fL (80.0-100.0); Monocytes # (auto) 0.5 10 ^3/uL (0-1.3); Monocytes % (auto) 6.3 % (0.0-12.0); Neutrophils # (auto) 6.5 10 ^3/uL (1.6-8.6); Neutrophils % (auto) 89.4 % (37.0-80.0); Nucleated Red Blood Cells % 0.2 %; Platelet Count (auto) 390 10^3/uL (140-450); Red Cell Distribution Width 18.6 % (11.8-14.3); White Blood Cell 7.3 10^3/uL (4.4-10.8)
[2024-03-26 06:38] LABS: Calcium 8.9 mg/dL (8.7-10.4)
[2024-03-26 06:42] LABS: Glucose 204 mg/dL (74-106)
[2024-03-26 06:43] LABS: BUN/Creatinine Ratio 9.9 (10.0-20.0); Blood Urea Nitrogen 35 mg/dL (9-23)
[2024-03-26] MEDS ORDERED: TACROLIMUS PO SCH (09:00)
[2024-03-26] MEDS: NIFEdipine ER 30 MG TAB PO SCH (10:31)
[2024-03-26] MEDS: SODIUM BICARB 50mEq/50ml Vial 150 ML in D5W 5% 1,000 ML IV SCH (11:15)
[2024-03-26 14:38] LABS: Phosphorus 4.5 mg/dL (2.4-5.1)
[2024-03-27] VITALS (16 sets, daily range): BP systolic 111–143; BP diastolic 46–55; PULSE 73–109; RESP 12–24; TEMP 98.2–99; O2SAT 85–100
[2024-03-27 08:31] LABS: Chloride 91 mmol/L (98-107); Potassium 4.3 mmol/L (3.5-5.1); Sodium 130 mmol/L (136-145)
[2024-03-27 08:33] LABS: Basophils # (auto) 0 10 ^3/uL (0-0.2); Calcium 8.6 mg/dL (8.7-10.4); Eosinophils # (auto) 0 10 ^3/uL (0-0.8); Lymphocytes # (auto) 0.8 10 ^3/uL (0.4-5.4); Monocytes # (auto) 0.5 10 ^3/uL (0-1.3); Neutrophils # (auto) 5.2 10 ^3/uL (1.6-8.6); Neutrophils % (auto) 80.3 % (37.0-80.0); Nucleated Red Blood Cells % 0.2 %; White Blood Cell 6.5 10^3/uL (4.4-10.8)
[2024-03-27 08:35] LABS: Basophils % (auto) 0.1 % (0.0-2.0); Hematocrit 27.1 % (36.0-46.0); Hemoglobin 8.8 g/dL (12.2-16.2); Lymphocytes % (auto) 11.9 % (10.0-50.0); Mean Corpuscular Hgb Conc. 32.5 g/dL (32.0-36.0); Mean Corpuscular Volume 77.1 fL (80.0-100.0); Monocytes % (auto) 7.7 % (0.0-12.0); Platelet Count (auto) 446 10^3/uL (140-450); Red Blood Cells 3.51 10^6/uL (4.0-5.20); Red Cell Distribution Width 18.8 % (11.8-14.3)
[2024-03-27 08:37] LABS: BUN/Creatinine Ratio 10.4 (10.0-20.0); Blood Urea Nitrogen 37 mg/dL (9-23); Glucose 183 mg/dL (74-106)
[2024-03-27 11:13] LABS: Anion Gap 6 (5-15); Carbon Dioxide 33 mmol/L (20-30)
[2024-03-27] MEDS ORDERED: FUROSEMIDE 40 MG/4 ML VIAL IV SCH (13:00)
[2024-03-27] MEDS: FUROSEMIDE 40 MG/4 ML VIAL IV SCH (13:13)
[2024-03-27] MEDS: methylPREDNISolone SOD SUCC 500 MG in SODIUM CHL 0.9% 100 ML IV SCH (14:18)
[2024-03-28 00:30] VITALS: O2SAT 98
[2024-03-28 05:10] VITALS: BP 119/51; PULSE 100; RESP 19; TEMP 98.1; O2SAT 96
[2024-03-28 06:05] VITALS: PULSE 89; RESP 16; O2SAT 98
[2024-03-28 06:10] VITALS: O2SAT 98
[2024-03-28 06:11] VITALS: O2SAT 98
[2024-03-28 06:16] VITALS: PULSE 92; RESP 18; O2SAT 100
[2024-03-28 07:23] LABS: Anion Gap 7 (5-15); Calcium 8.8 mg/dL (8.7-10.4); Carbon Dioxide 31 mmol/L (20-30); Chloride 91 mmol/L (98-107); Potassium 3.9 mmol/L (3.5-5.1); Sodium 129 mmol/L (136-145)
[2024-03-28 07:29] LABS: Glucose 185 mg/dL (74-106)
[2024-03-28 07:30] LABS: BUN/Creatinine Ratio 9.2 (10.0-20.0); Blood Urea Nitrogen 32 mg/dL (9-23)
[2024-03-28 07:54] LABS: Basophils # (auto) 0 10 ^3/uL (0-0.2); Basophils % (auto) 0.2 % (0.0-2.0); Eosinophils # (auto) 0 10 ^3/uL (0-0.8); Lymphocytes # (auto) 0.1 10 ^3/uL (0.4-5.4); Monocytes # (auto) 0.1 10 ^3/uL (0-1.3); Nucleated Red Blood Cells % 0.2 %
[2024-03-28 07:56] LABS: Eosinophils % (auto) 0.1 % (0.0-7.0); Hematocrit 28.5 % (36.0-46.0); Hemoglobin 9.1 g/dL (12.2-16.2); Lymphocytes % (auto) 4.7 % (10.0-50.0); Mean Corpuscular Hemoglobin 25.1 pg (28.0-32.0); Mean Corpuscular Volume 78.3 fL (80.0-100.0); Neutrophils # (auto) 2.4 10 ^3/uL (1.6-8.6); Platelet Count (auto) 452 10^3/uL (140-450); Red Blood Cells 3.65 10^6/uL (4.0-5.20); Red Cell Distribution Width 18.3 % (11.8-14.3); White Blood Cell 2.6 10^3/uL (4.4-10.8)
== END 2024-03-28 07:15 | disposition short-term general hospital (02) | DRG 871 ==
LOC: ER 12:25 → OVERFLOW 17:18 → EAST 23:29 → TELE-EAST 03-25 09:22
PROVIDERS: ADMIT Internal Medicine; ATTEND Emergency Medicine
PROC: 30233N1 Transfusion of Nonautologous Red Blood Cells into Peripheral Vein, Percutaneous Approach (ICD-10-PCS; principal; 2024-03-21)
PROC: 0DB98ZX Excision of Duodenum, Via Natural or Artificial Opening Endoscopic, Diagnostic (ICD-10-PCS; 2024-03-24)
PROC: 0DB68ZX Excision of Stomach, Via Natural or Artificial Opening Endoscopic, Diagnostic (ICD-10-PCS; 2024-03-24)
DX: A41.9 Sepsis, unspecified organism (principal); J18.9 Pneumonia, unspecified organism; J96.01 Acute respiratory failure with hypoxia; K57.31 Diverticulosis of large intestine without perforation or abscess with bleeding; N17.0 Acute kidney failure with tubular necrosis; T86.11 Kidney transplant rejection; K50.911 Crohn's disease, unspecified, with rectal bleeding; D62 Acute posthemorrhagic anemia; N30.00 Acute cystitis without hematuria; I24.89 Other forms of acute ischemic heart disease; K52.9 Noninfective gastroenteritis and colitis, unspecified; E87.5 Hyperkalemia; E78.5 Hyperlipidemia, unspecified; E11.65 Type 2 diabetes mellitus with hyperglycemia; I10 Essential (primary) hypertension; K31.7 Polyp of stomach and duodenum; K29.70 Gastritis, unspecified, without bleeding; Y83.8 Other surgical procedures as the cause of abnormal reaction of the patient, or of later complication, without mention of misadventure at the time of the procedure; K44.9 Diaphragmatic hernia without obstruction or gangrene; Z90.49 Acquired absence of other specified parts of digestive tract; Z98.891 History of uterine scar from previous surgery; Z79.899 Other long term (current) drug therapy; Z90.710 Acquired absence of both cervix and uterus; Z80.41 Family history of malignant neoplasm of ovary; Z80.3 Family history of malignant neoplasm of breast; Y92.89 Other specified places as the place of occurrence of the external cause; Z88.8 Allergy status to other drugs, medicaments and biological substances
CPT/HCPCS: 36415; 43239; 70450; 71045; 71250; 74176; 80048; 80053; 80197; 81001; 82270; 82306; 82728; 82962; 83036; 83540; 83550; 83605; 83690; 83735; 83880; 83970; 84100; 84132; 84484; 85007; 85014; 85018; 85025; 85027; 85610; 85652; 85730; 86141; 86160; 86850; 86900; 86901; 86920; 87040; 94640; G0378; J1756; J1815; J2250; J2405; J2470; J2543; J7507; J7517